=== PATIENT | female | born 1985 | race Caucasian/White ===

== ENCOUNTER 2018-04-05 06:19 | Inpatient (IN) ==
[2018-04-07] MEDS ORDERED: TERBUTALINE 1 MG/ML VIAL SQ PRN (15:44)
[2018-04-07] MEDS ORDERED: DINOPROSTONE 10 MG VAGINAL INSERT VG ONE (15:44)
[2018-04-07] MEDS ORDERED: SALINE FLUSH 10ml SYRINGE IV PRN ×2 (15:44→18:12)
[2018-04-07] MEDS ORDERED: CARBOPROST 250 MCG/ML INJECTION IM PRN (18:12)
[2018-04-07] MEDS ORDERED: METHYLERGONOVINE 0.2 MG/ML INJECTION IM PRN (18:12)
[2018-04-07] MEDS ORDERED: CALCIUM CARBONATE Chewable 500mg TABLET PO PRN (18:12)
[2018-04-07] MEDS ORDERED: ACETAMINOPHEN 500 MG TABLET PO PRN (18:12)
[2018-04-07] MEDS ORDERED: LIDOCAINE 1% (10mg/ml) 2mL INJ PF SDV ID PRN (18:12)
[2018-04-07] MEDS ORDERED: ZOLPIDEM 10 MG TABLET PO PRN (18:21)
[2018-04-07] MEDS: MAG-AL + SIM ORAL LIQUID 30ml PO PRN (20:46)
[2018-04-08 01:38] VITALS: BMI 27.6
[2018-04-08] MEDS: LR 1,000 ML IV PRN ×3 (05:56→12:34)
[2018-04-08] MEDS: D5LR 1,000 ML IV PRN ×2 (05:57→15:59)
[2018-04-08] MEDS ORDERED: OXYTOCIN DRIP 30 UNIT/500 ML ML IV PRN (06:00)
[2018-04-08] MEDS: MAG-AL + SIM ORAL LIQUID 30ml PO PRN (07:03)
[2018-04-08] MEDS ORDERED: BUTORPHANOL 2 MG/ML INJECTION IVP ONE (10:10)
--- NOTE | 2018-04-08 11:04 | Anesthesia Preoperative Report ---
Anesthesia Epidural/Spinal Rec - Date and Time Date: 04/08/18 Preoperative Diagnosis: Labor Procedure: Labor Epidural Plan: Epidural - Vital Signs Vital Signs: Temperature 98.0 F 04/07/18 18:41 Pulse Rate 79 04/07/18 18:41 Respiratory Rate 20 04/07/18 18:41 Blood Pressure 140/81 H 04/07/18 18:41 Pulse Oximetry 97 04/07/18 18:41 /Para: P:0 - Medictaions & Allergies Inpatient Medications: Current Medications Acetaminophen (Tylenol) 500 - 1,000 mg PO Q4H PRN PRN Reason: Pain Al Hydroxide/Mg Hydroxide (Maalox Plus) 30 ml PO Q3H PRN PRN Reason: Indigestion Last Admin: 04/08/18 07:03 Dose: 30 ml Calcium Carbonate (Tums) 500 - 1,000 mg PO Q2H PRN PRN Reason: Indigestion Carboprost Tromethamine (Hemabate) 250 mcg IM O PRN PRN Reason: .Downtime Diphenhydramine HCl (Benadryl) 50 mg PO HS PRN PRN Reason: Sleep Lactated Ringer's (Lactated Ringers) 1,000 mls @ 999 mls/hr IV .Q1H1M PRN Last Admin: 04/08/18 05:56 Dose: 999 mls/hr Dextrose/Lactated Ringer's (Dextrose 5%-Lactated Ringers) 1,000 mls @ 125 mls/ hr IV .Q8H PRN PRN Reason: Labor Last Admin: 04/08/18 05:57 Dose: 125 mls/hr Oxytocin (Pitocin Drip) 30 unit in 500 mls @ 2 mls/hr IV .Q24H PRN; Protocol PRN Reason: Induction/Augmentation Last Admin: 04/08/18 05:58 Dose: 2 mls/hr Lidocaine HCl (Xylocaine-Mpf 1% Vial) 0.2 mg ID O PRN PRN Reason: IV Start Methylergonovine Maleate (Methergine) 0.2 mg IM O PRN Misoprostol (Cytotec) 800 mcg [place] ONCE PRN Sodium Chloride (Iv Flush) 10 - 80 ml IV PRN PRN PRN Reason: Flushing Last Admin: 04/07/18 18:20 Dose: 10 ml Sodium Chloride (Iv Flush) 10 - 80 ml IV PRN PRN PRN Reason: Flushing Last Admin: 04/08/18 02:07 Dose: 10 ml Terbutaline Sulfate (Brethine) 0.25 mg SQ PRN PRN Zolpidem Tartrate (Ambien) 10 mg PO HS PRN PRN Reason: Insomnia Last Admin: 04/07/18 21:39 Dose: 10 mg Allergies/Adverse Reactions: Allergies Allergy/AdvReac Type Severity Reaction Status Date / Time codeine [Codiene] Allergy Anaphylactic Verified 04/07/18 19:05 Shock Penicillins Allergy Anaphylactic Verified 04/07/18 19:04 Shock - Home Medications Home Medications: Home Medications Medication Instructions Recorded Confirmed Type Lactobacillus Acidophilus 2 each PO DAILY 04/04/18 04/07/18 History [Probiotic] Pnv No.95/Ferrous Fum/Folic AC 1 each PO DAILY 04/04/18 04/07/18 History [ Tablet] Ranitidine [Zantac] 150 mg PO BID 04/07/18 04/07/18 History - Medical History Respiratory: Reports: Bronchitis (Hx of) Neuro/Musculoskeletal: Denies: Depression Other History: Reports: Now DENIES: Anesthesia Reactions - Surgical History HEENT Surgeries: Reports: Nose Surgery (sinus surgery 2003), Tonsillectomy (in the ) Reproductive Surgery/Treatment: DENIES: Section Anesthesia Reactions: None Hx Family Anesthesia Reaction: No History of Motion Sickness: No - Social History Smoking Status: Former smoker Substance Use Type: does not use Alcohol Intake Frequency: does not drink - Pertinent Findings Lab Data: CBC and BMP 04/07/18 18:23 - Physical Exam Respiratory Exam: lungs clear Cardiovascular Exam: regular rate and rhythm - Airway Assessment Mallampati Score: II TMD: 3 Fingerbreadths Neck Extension: good Overall Assessment: may be difficult intubation - ASA ASA Score: 2 - Discussion Discussion: Discussed risks/options/alternatives of anesthesia and questions answered. Patient consents. Nursing pain assessment noted. Anesthesia Discussion: spouse Attestation Statement: Prior to the delivery of any anesthetic medication, I examined the patient, developed the plan, obtained the patient's consent and discussed the risk and benefits of the procedure with the patient/guardian.
[2018-04-08] MEDS ORDERED: ONDANSETRON 4 MG/2 ML INJECTION IVP PRN (11:05)
[2018-04-08] MEDS ORDERED: NALOXONE 0.4 MG/ML INJECTION IVP PRN (11:05)
[2018-04-08] MEDS ORDERED: ROPIVACAINE 1% 10MG/ML INJ 200 MG, SUFentanil 50 MCG in NS 100 ML EPI PRN (11:05)
[2018-04-08] MEDS ORDERED: DiphenhydrAMINE 50 MG/ML INJECTION IVP PRN (11:05)
--- NOTE | 2018-04-08 11:20 | OB/GYN Progress Note ---
- Pain Control Pain control: Epidural - Pelvic Exam Dilation (cm): 3 Effacement (%): 50 station: -3 Amniotic membrane status: Ruptured Comments: Weller bulb removed, Cervix 3cm, AROM clear fluid. - Contractions Monitor mode: External Contraction pattern: Regular Contraction intensity: Moderate - Status status: Category l - Assessment and Plan Pitocin rate (mU/min): 20 Assessment: induction ongoing Plan: continuous present management
[2018-04-08] MEDS ORDERED: ACETAMINOPHEN 500 MG TABLET PO PRN (21:26)
[2018-04-08] MEDS ORDERED: OXYTOCIN DRIP 30 UNIT/500 ML ML IV SCH (21:26)
[2018-04-08] MEDS ORDERED: MAG-AL + SIM ORAL LIQUID 30ml PO PRN (21:26)
[2018-04-08] MEDS ORDERED: HYDROCORTISONE 2.5% CREAM 30gm RECTALLY PRN (21:26)
[2018-04-08] MEDS ORDERED: HYDROCODONE/APAP 5mg/325mg TABLET PO PRN (21:26)
[2018-04-08] MEDS ORDERED: RHOPHYLAC - PHARMACY CONSULT MC ONE (21:26)
[2018-04-08] MEDS ORDERED: DiphenhydrAMINE 25 MG CAPSULE PO PRN (21:26)
[2018-04-08] MEDS ORDERED: CALCIUM CARBONATE Chewable 500mg TABLET PO PRN (21:26)
[2018-04-08] MEDS: IBUPROFEN 800 MG TABLET PO PRN (22:51)
[2018-04-09] MEDS: APAP/CODEINE 300 MG/30 MG TABLET PO PRN ×4 (02:07→20:35)
[2018-04-09] MEDS: IBUPROFEN 800 MG TABLET PO PRN ×3 (06:37→22:19)
[2018-04-09] MEDS: DOCUSATE CALCIUM 240 MG CAPSULE PO SCH ×2 (06:37→10:26)
--- NOTE | 2018-04-09 08:13 | OB/GYN Progress Note ---
OB-Progress Note Free Text - Date Date: 04/09/18 - Progress Note Progress Note: vss af hgb ok doing ok no c/o q&a-krb
--- NOTE | 2018-04-09 10:29 | Pharmacy Consult ---
Pharmacy Consult-Rhophylac - Laboratory Information 04/07/18 04/08/18 18:23 21:26 Blood Type O Negative RhIG Candidate? Not a candidate - Consult Information Rh FACTOR CONSULT: Mother Blood Type = O NEGATIVE Child Blood Type = O NEGATIVE Hgb / Adult Ratio = N/A Will NOT give Rho D Immunglobulin. Thank you.
--- NOTE | 2018-04-09 11:12 | Labor and Delivery Note ---
DATE OF DELIVERY: 04/08/2018 DIAGNOSES 1. 32-year-old white female G1, P0 at 40.3 weeks gestational age. 2. Induction of labor for postdates. 3. Cervidil cervical ripening. 4. Weller bulb cervical ripening. 5. Pitocin induction. 6. Artificial rupture of membranes. 7. Epidural anesthesia. 8. Spontaneous vaginal delivery. 9. Nuchal cord x1 - tight - delivered through. 10. Female , Apgars, 2925 grams (6 pounds 7 ounces) (Emblem Green ). 11. Second-degree perineal laceration, right periurethral laceration, and sulcus laceration - all repaired. DESCRIPTION: This is a postdates patient of mine who was brought in for ripening Sunday. Cervidil was placed by Dr. Cazares. Sunday pitocin was started but cervix was still closed so a Weller bulb was placed by Dr. Davis. Then the Weller bulb was later removed and the cervix was 3 cm dilated and rupture of membranes occurred. Pit reached a maximum of 20 milliunits a minute. An IUPM was later placed and it was titrated down to 16 and back up to 20 and then with pushing it was dropped to 10. She had a slow protracted labor but eventually made it to complete dilation in the OA presentation and we began pushing. We pushed with every other contraction because of heart tones. The patient had a spontaneous vaginal delivery from the OA presentation. was bulb suctioned after delivery of the head and then again after delivery of the body. There was a tight nuchal cord but I was able to deliver through it and then allowed the cord to drain for a minute and a half before it was doubly clamped and cut by the infant's father. Infant was initially placed on mother's abdomen. Placenta delivered spontaneously and was intact. Because of maternal O negative blood type, a tube of blood was taken. The right periurethral laceration was repaired with 3-0 chromic. The second-degree laceration was repaired first by reinforcing the rectal sphincter capsule with 2 -0 Vicryl and then the remaining was done in the usual fashion with 2-0 Vicryl. The sulcus laceration was repaired with 3-0 chromic. EBL was 350. Rubella is immune and GBS was negative. MTDD
--- NOTE | 2018-04-09 18:22 | Progress Note ---
OB PP Progress Note Free Text - Date Date: 04/09/18 - Progress Note Progress Note: doing well dc instructions reviewed per pt request q&a
[2018-04-10 01:22] VITALS: TEMP 98
[2018-04-10] MEDS: APAP/CODEINE 300 MG/30 MG TABLET PO PRN (04:35)
[2018-04-10] MEDS: DOCUSATE CALCIUM 240 MG CAPSULE PO SCH ×2 (07:26→11:04)
[2018-04-10] MEDS: IBUPROFEN 800 MG TABLET PO PRN (07:26)
[2018-04-10 07:34] VITALS: PULSE 74; RESP 16; O2SAT 97
[2018-04-10 10:14] VITALS: BP 135/75
--- NOTE | 2018-04-10 10:50 | Progress Note ---
OB PP Progress Note Free Text - Date Date: 04/10/18 - Progress Note Progress Note: ppd2 doing well - ready for dc q&a dc instructions reviewed again f/u 5-6 wks
== END 2018-04-10 11:22 | disposition home or self-care (01) | DRG 775 ==
LOC: MC 04-07 18:00
PROVIDERS: ADMIT Obstetrics & Gynecology; ATTEND Obstetrics & Gynecology